=== PATIENT | female | born 1965 | race Caucasian/White ===

== ENCOUNTER 2018-12-07 17:43 | Emergency (ER) | payer OTHER ==
[2018-12-07] MEDS ORDERED: DEBROX15 ML OT (18:27)
[2018-12-07] MEDS ORDERED: ATARAX,VISTARIL10 MG PO (18:27)
== END 2018-12-07 18:34 | disposition home or self-care (01) ==
LOC: ED 17:43
DX: R09.81 Nasal congestion (principal); H61.22 Impacted cerumen, left ear; R05 Cough; R51 Headache; R68.83 Chills (without fever); R06.00 Dyspnea, unspecified; J44.9 Chronic obstructive pulmonary disease, unspecified; Z87.891 Personal history of nicotine dependence